=== PATIENT | female | born 1990 | race Two or more races ===

== ENCOUNTER 2019-07-31 05:51 | Inpatient (IN) | payer OTHER ==
[~2019-07-31] VITALS: Ht 162.6 cm; Wt 65.3 kg
[2019-07-31] MEDS ORDERED: PRENATAL CAPLE1 EAC1 PO (09:34)
== END 2019-08-02 16:03 | DRG 807 ==
LOC: OB/GYN 05:51 → LDR 05:51 → OB/GYN 17:50
PROVIDERS: ADMIT Obstetrics & Gynecology
PROC: 10E0XZZ Delivery of Products of Conception, External Approach (ICD-10-PCS; principal; 2019-07-31)
PROC: 4A1HXCZ Monitoring of Products of Conception, Cardiac Rate, External Approach (ICD-10-PCS; 2019-07-31)
DX: O80 Encounter for full-term uncomplicated delivery (principal); Z37.0 Single live birth; Z3A.39 39 weeks gestation of pregnancy; Z22.330 Carrier of Group B streptococcus